=== PATIENT | male | born 1980 | race Two or more races ===

== ENCOUNTER 2020-08-05 14:09 | Outpatient (REF) | payer MEDICARE, MEDICAID, SELFPAY ==
--- NOTE | 2020-08-05 14:32 | XR_ITS ---
EXAMINATION: XR MANDIBLE CLINICAL INFORMATION: Pain. COMPARISON: None TECHNIQUE: 4 views of the mandible were obtained. FINDINGS: There are no fractures or dislocations. No bone, joint or soft tissue abnormality is demonstrated. XR/XR mandible <4V IMPRESSION: Unremarkable mandible exam.
--- NOTE | 2020-08-05 14:32 | XR_ITS ---
EXAMINATION: XR CHEST CLINICAL INFORMATION: Weight loss COMPARISON: Chest radiographs 10/25/2012 TECHNIQUE: 2 views of the chest were obtained. FINDINGS: The heart is normal in size. The vascularity is normal. There is no visible mass or airspace elevation or effusion. The hilar and mediastinal contours are unremarkable. No acute bony abnormality. XR/XR chest 2V IMPRESSION: Unremarkable examination.
[2020-08-05 14:48] LABS: MANUAL DIFF FLAG NO
[2020-08-05 15:01] LABS: Basophils Absolute Auto 0.1 X10*3/uL (0.0-0.2); Basophils Percent Auto 0.7 % (0-2); Eosinophils Absolute Auto 0.3 X10*3/uL (0.0-0.4); Eosinophils Percent Auto 3.7 % (0-4); Hematocrit 48.9 % (42-52); Hemoglobin 17.2 g/dl (14.0-18.0); Imm Gran Abs Auto 0.02 X10*3/uL (0.00-0.03); Imm Gran Pct Auto 0.2 % (0.0-0.4); Lymphocytes Absolute Auto 2.5 X10*3/uL (1.2-4.9); Lymphocytes Percent Auto 30.2 % (20-40); Mean Corpuscular HGB Conc 35.2 g/dl (31.0-36.0); Mean Corpuscular Hemoglobin 29.5 pg (27.0-33.0); Mean Corpuscular Volume 83.9 fL (80-98); Mean Platelet Volume 12.1 fL (9.4-12.4); Monocytes Absolute Auto 0.5 X10*3/uL (0.1-1.2); Monocytes Percent Auto 6.5 % (2-11); Neutrophils Absolute Auto 4.9 X10*3/uL (2.0-8.3); Neutrophils Percent Auto 58.7 % (45-73); Platelet Count 213 X10*3/uL (160-400); Red Blood Count 5.83 X10*6/uL (4.60-5.80); Red Cell Distribution Width 11.6 % (11.0-16.0); White Blood Count 8.3 X10*3/uL (4.8-10.8)
[2020-08-05 15:22] LABS: Alanine Aminotransferase 43 U/L (0-40); Albumin Level 4.4 g/dL (3.5-5.0); Alkaline Phosphatase 201 U/L (39-117); Anion Gap 14 (12-20); Aspartate Amino Transferase 22 U/L (5-37); Bilirubin Total 0.5 mg/dL (0.0-1.0); Blood Urea Nitrogen 7 mg/dL (9-16); Calcium 9.6 mg/dL (8.4-10.2); Carbon Dioxide 27 mmol/L (22-29); Chloride 94 mmol/L (96-108); Estimated Glomerular Filt Rate > 60; Glucose Random 545 mg/dL (60-115); Potassium 4.5 mmol/l (3.3-5.1); Sodium 130 mmol/L (135-145); Total Protein 7.5 g/dL (6.5-8.0)
[2020-08-05 15:40] LABS: Free T4 (Free Thyroxine) 1.09 ng/dL (0.71-1.85); Thyroid Stimulating Hormone 1.56 uIU/mL (0.32-4.0)
== END 2020-08-05 14:10 | disposition home or self-care (01) ==
LOC: HO.LAB 14:09
PROVIDERS: PCP Internal Medicine; Visit Provider Internal Medicine
DX: K21.9 Gastro-esophageal reflux disease without esophagitis (principal); R63.4 Abnormal weight loss; M25.28 Flail joint, other site
CPT/HCPCS: 36415; 70100; 71046; 80053; 84439; 84443; 85025

== ENCOUNTER 2021-04-26 12:19 | Outpatient (REF) | payer MEDICARE, MEDICAID, SELFPAY ==
[2021-04-26 13:56] LABS: MANUAL DIFF FLAG NO
[2021-04-26 14:01] LABS: Basophils Absolute Auto 0.1 X10*3/uL (0.0-0.2); Basophils Percent Auto 0.7 % (0-2); Eosinophils Absolute Auto 0.5 X10*3/uL (0.0-0.4); Eosinophils Percent Auto 5.5 % (0-4); Hematocrit 48.9 % (42-52); Hemoglobin 16.9 g/dl (14.0-18.0); Imm Gran Abs Auto 0.02 X10*3/uL (0.00-0.03); Imm Gran Pct Auto 0.2 % (0.0-0.4); Lymphocytes Absolute Auto 3.2 X10*3/uL (1.2-4.9); Lymphocytes Percent Auto 32.4 % (20-40); Mean Corpuscular HGB Conc 34.6 g/dl (31.0-36.0); Mean Corpuscular Hemoglobin 29.9 pg (27.0-33.0); Mean Corpuscular Volume 86.4 fL (80-98); Mean Platelet Volume 11.7 fL (9.4-12.4); Monocytes Absolute Auto 0.6 X10*3/uL (0.1-1.2); Monocytes Percent Auto 6.3 % (2-11); Neutrophils Absolute Auto 5.4 X10*3/uL (2.0-8.3); Neutrophils Percent Auto 54.9 % (45-73); Platelet Count 196 X10*3/uL (160-400); Red Blood Count 5.66 X10*6/uL (4.60-5.80); Red Cell Distribution Width 12.5 % (11.0-16.0); White Blood Count 9.8 X10*3/uL (4.8-10.8)
[2021-04-26 14:15] LABS: Estimated Average Glucose 140 mg/dL; Hemoglobin A1c % 6.5 %
[2021-04-26 14:25] LABS: Creatinine Urine 122.13 mg/dL; Microalbum/Creatinine Ratio Ur 4.9 ug/mg cr
[2021-04-26 14:29] LABS: Alanine Aminotransferase 95 U/L (0-40); Albumin Level 4.3 g/dL (3.5-5.0); Alkaline Phosphatase 113 U/L (39-117); Anion Gap 13 (12-20); Aspartate Amino Transferase 55 U/L (5-37); Bilirubin Total 0.7 mg/dL (0.0-1.0); Blood Urea Nitrogen 6 mg/dL (9-16); Calcium 9.1 mg/dL (8.4-10.2); Carbon Dioxide 25 mmol/L (22-29); Chloride 105 mmol/L (96-108); Estimated Glomerular Filt Rate > 60; Glucose Fasting 123 mg/dL (60-99); Potassium 4.3 mmol/L (3.3-5.1); Sodium 139 mmol/L (135-145); Total Protein 7.5 g/dL (6.5-8.0)
[2021-04-26 14:38] LABS: Thyroid Stimulating Hormone 2.04 uIU/mL (0.32-4.0)
== END 2021-04-26 12:20 | disposition home or self-care (01) ==
LOC: HO.10HDL 12:19
PROVIDERS: Visit Provider Internal Medicine
DX: E11.9 Type 2 diabetes mellitus without complications (principal); K21.9 Gastro-esophageal reflux disease without esophagitis; R63.5 Abnormal weight gain
CPT/HCPCS: 36415; 80053; 82043; 83036; 84443; 85025

== ENCOUNTER 2024-10-22 11:06 | Outpatient (REF) | payer MEDICARE, SELFPAY ==
[2024-10-22 12:39] LABS: Estimated Average Glucose 111 mg/dL; Hemoglobin A1C 169.0809 umol/L; Hemoglobin A1c % 5.5 % (<6.0)
[2024-10-22 12:54] LABS: Alanine Aminotransferase 31 U/L (0-40); Albumin Level 4.2 g/dL (3.5-5.0); Alkaline Phosphatase 111 U/L (39-117); Anion Gap 10 (12-20); Aspartate Amino Transferase 26 U/L (5-37); Bilirubin Total 0.5 mg/dL (0.0-1.0); Blood Urea Nitrogen 7 mg/dL (9-16); Calcium 9.2 mg/dL (8.4-10.2); Carbon Dioxide 28 mmol/L (22-29); Chloride 107 mmol/L (96-108); Cholesterol 206 mg/dL (<200); Estimated Glomerular Filt Rate > 60; Glucose Random 87 mg/dL (60-115); HDL Cholesterol 44 mg/dL (>40); LDL Cholesterol Calculated 114 mg/dL (<100); Potassium 3.9 mmol/L (3.3-5.1); Sodium 141 mmol/L (135-145); Total Protein 7.2 g/dL (6.5-8.0); Triglycerides 244 mg/dL (<150)
[2024-10-22 13:53] LABS: Microalbumin Urine < 5.0 mg/L
== END 2024-10-22 11:07 | disposition home or self-care (01) ==
LOC: HO.LAB 11:06
PROVIDERS: PCP Internal Medicine; Visit Provider Internal Medicine
DX: E11.9 Type 2 diabetes mellitus without complications (principal)
CPT/HCPCS: 36415; 80053; 80061; 82043; 82570; 83036

== ENCOUNTER 2024-12-17 10:53 | Outpatient (AMB) | payer MEDICARE, SELFPAY ==
--- NOTE | 2024-12-17 10:55 | A.OFFPC_ITS ---
Vital Signs 12/17/24 10:57 12/17/24 11:20 Height 5 ft 9 in Weight 88.451 kg BMI 28.8 BP 138/98 H 120/78 Respiration 16 Pulse 75 Pulse Source Pulse Oximeter Temp 97.7 F Temp Source Temporal Artery Scan Pulse Oximetry (%) 96 Oxygen Delivery Method Room Air Intake Visit Reasons: Routine Marketing Support Manager Required: No Accompanied by: Self / Same As Patient Allergies No Known Allergies [No Known Allergies*] Allergy (Unverified 12/17/24 10:55) Medication List - Last Reconciled 12/17/24 by DANIEL Anderson benztropine 1 mg PO BID fluoxetine 20 mg PO DAILY risperidone 2 mg PO BID HPI HPI Comments History of Present Illness Details 44-year-old male with history of schizop hrenia presents to the office today for evaluation and to establish care. He has been following with both a psychiatrist and therapist at [facility] he reports good control over his symptoms. He does have a history of paranoia with most recent hospitalization in 2019 at [facility]. Since then, he has been stable on his medications. He is currently taking risperidone 2 mg twice daily and fluoxetine 20 mg daily. He is also on benztropine but denies any history of symptoms consistent with EPS or TD. Units have a remote history of hemoglobin A1c 6.5%, possibly related to psychiatric medications. Now controlled at 5.5%. He does state that he exercises on a daily basis but is not overly strict with his diet. He denies any SI/HI. PHQ-9 and brina 7 both negative. ROS: General: No fevers, malaise, unintentional weight loss HEENT: No blurred vision, diplopia. No sore throat, nasal congestion, rhinorrhea, sinus pain, ear pain Cardiovascular: No chest pain, palpitations, or leg edema Respiratory: No shortness of breath, wheezing, cough GI: No abdominal pain, nausea, vomiting, diarrhea, constipation, melena, hematochezia : No dysuria, hematuria, increased urinary frequency, decreased urinary output MSK: No myalgia, back pain Neuro: No headaches, weakness, paresthesias Skin: No rashes or lesions EXAM: Constitutional - Awake and Alert, No apparent distress Eyes - PERRLA, EOMI Cardiovascular - S1S2, RRR, No edema Respiratory - Normal lung expansion, Normal respiratory effort, No respiratory distress, CTA bilaterally Extremities - no calf tenderness bilaterally, no swelling Skin - Warm/Dry Neurological - Alert & oriented x3 Psychological - flat affect, appropriate mood Health Maintenance: Screening colonoscopy-no history of colon cancer in his family. Will initiate colon cancer screening in 1 year Advised to quit smoking [facility] Medical History (Updated 12/17/24 @ 11:11 by DANIEL Anderson) Schizophrenia Surgical History (Updated 12/17/24 @ 11:11 by DANIEL Anderson) No pertinent past surgical history Family History Maternal Grandmother No problems noted. Mother No problems noted. Social History Patient Tobacco Use Status: Current everyday Tobacco user Tobacco use type: Cigarette Cigarettes Per Day: 2 Substance Use Type: Marijuana Physical exam (Primary Care) Vital Signs: Last Vital Signs Temp 97.7 F 12/17/24 10:57 Pulse 75 12/17/24 10:57 Resp 16 12/17/24 10:57 BP 138/98 H 12/17/24 10:57 Pulse Ox 96 12/17/24 10:57 Oxygen Delivery Method Room Air 12/17/24 10:57 BMI result Body Mass Index 28.8 Coding Level of Care Code New Pt Level 3 (21977) Diagnoses Schizophrenia F20.9 Diabetes mellitus E11.9 Assessment & Plan Assessment & Plan (1) Schizophrenia: Comment: last hospitalization 1999 [facility] [place] Code(s): F20.9 - Schizophrenia, unspecified Category: Medical Plan: Stable. Continue following with psychiatry and counseling at [facility]. Continue on current medications, refills sent. (2) Diabetes mellitus: Code(s): E11.9 - Type 2 diabetes mellitus without complications Category: Medical Plan: Suspect related to psychiatric medication, now controlled at 5.5%. Continue regular exercise and work to improve diabetic diet. Plan Follow up for annual physical exam. Last labs reviewed to normal renal function electrolyte levels. Acceptable cholesterol levels and A1c. Continue medications as prescribed Medications: New benztropine 1 mg PO BID 180 tabs 1RF fluoxetine 20 mg PO DAILY 90 caps 1RF risperidone 2 mg PO BID 180 tabs 1RF
[2024-12-17 10:57] VITALS: BP 138/98; PULSE 75; RESP 16; TEMP 36.5; O2SAT 96; BMI 28.8
[2024-12-17 11:20] VITALS: BP 120/78
== END 2024-12-17 11:33 | disposition home or self-care (01) ==
LOC: HO.HMCHD 10:53
PROVIDERS: PCP Internal Medicine; Visit Provider Physician Assistant
DX: F20.9 Schizophrenia, unspecified (principal); E11.9 Type 2 diabetes mellitus without complications

== ENCOUNTER → 2024-12-17 10:53 | Outpatient (BNVA) | payer MEDICARE, SELFPAY | PROVIDERS: PCP Internal Medicine; Visit Provider Physician Assistant | DX: F20.9 Schizophrenia, unspecified (principal); E11.9 Type 2 diabetes mellitus without complications; F17.210 Nicotine dependence, cigarettes, uncomplicated | CPT/HCPCS: 99202 ==

== ENCOUNTER 2025-04-23 13:01 | Outpatient (AMB) | payer MEDICARE, SELFPAY ==
--- NOTE | 2025-04-23 12:43 | MHC.PC.OV ---
Vital Signs 04/23/25 13:08 Height 5 ft 9 in Weight 209 lb BMI 30.9 BP 110/68 Blood Pressure Location Lt brachial Position Sitting Respiration 16 Pulse 63 Pulse Source Pulse Oximeter Temp 97.8 F Temp Source Temporal Artery Scan Pulse Oximetry (%) 97 Oxygen Delivery Method Room Air Intake Visit Reasons: Annual PE Pin Inserter Required: No Accompanied by: Self / Same As Patient Allergies No Known Allergies (No Known Allergies*) Allergy (Verified 04/23/25 12:44) Medication List - Last Reconciled 04/23/25 by Eduardo Reyes MD benztropine 1 mg PO BID fluoxetine 40 mg PO DAILY glipizide 10 mg PO BID metformin 500 mg PO BID risperidone 2 mg PO BID Tobacco use date assessed: 04/23/25 Dental Screening Dental Screen Date: 04/23/25 Did you have a dental visit in the last 12 months?: No Did you have a dental problem in the last 6 months where you did not have access to dental care?: No Was dental information given to patient?: Patient has dentist HPI HPI Comments History of Present Illness Details The patient is a 44-year-old male presenting for his annual physical examination. During the visit, the patient reported no acute complaints or specific health concerns and stated that his health has been so far, so good. He denied experiencing any mood disturbances, such as feeling down, depressed, or anxious, and indicated he was taking it day by day. The patient has a medical history significant for schizophrenia and type 2 diabetes mellitus, which are being managed with medications. He has been taking benztropine 1 mg twice daily, fluoxetine 40 mg once daily, and risperidone 2 mg twice daily for schizophrenia. For diabetes management, he takes glipizide 10 mg twice daily and metformin 500 mg twice daily. He has regular follow-ups with his psychiatrist two to three times a month and also sees a therapist with the same frequency. Socially, the patient is currently on disability due to an accident and is not employed. 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 He lives in stable housing and has access to his medications without financial worries. The patient admits to occasional smoking, about once a month, and consumes alcohol similarly with two to three drinks per occasion. He enjoys walking in the park for leisure. The patient's last colonoscopy has not yet been conducted, as screening is recommended to begin at age 45. He has not yet received this year?s influenza vaccine. Overall, the patient appears to manage his chronic conditions well and is compliant with his care plans, as indicated by his regular medical and psychiatric follow-ups and medication adherence. Medical History: - Schizophrenia - Type 2 Diabetes Mellitus Medications: - Benztropine 1 mg, twice daily, for schizophrenia - Fluoxetine 40 mg, once daily, for schizophrenia - Risperidone 2 mg, twice daily, for schizophrenia - Glipizide 10 mg, twice daily, for diabetes - Metformin 500 mg, twice daily, for diabetes Social History: - Currently disabled due to an accident; not employed - Former regional sales executive at [employer] - Stable housing - Smokes occasionally, approximately once a month - Consumes alcohol about once a month, two to three drinks per occasion - Regular physical activity includes walking in the park - No financial barriers to medication access [facility] Medical History (Updated 04/23/25 @ 13:21 by Eduardo Reyes MD) Annual physical exam Schizophrenia Surgical History No pertinent past surgical history Family History Maternal Grandmother No problems noted. Mother No problems noted. Social History (Updated 12/17/24 @ 11:14 by DANIEL Anderson) Housing: House Patient Tobacco Use Status: Current everyday Tobacco user Tobacco use type: Cigarette Cigarettes Per Day: 2 Years Smoked: 2 years Packs per year/per ci.00 e-Cigarette/Vaping Use: Never Used Substance Use Type: Marijuana service: No Current occupational status: disabled Questionnaire PHQ-9 Over the last 2 weeks, how often have you been bothered by any of the following problems? 1. Little interest or pleasure in doing things: not at all 2. Feeling down, depressed, or hopeless: not at all 3. Trouble falling or staying asleep, or sleeping too much: not at all 4. Feeling tired or having little energy: not at all 5. Poor appetite or overeating: not at all 6. Feeling bad about yourself - or that you are a failure or have let yourself or your family down: not at all 7. Trouble concentrating on things, such as reading the newspaper or watching television: not at all 8. Moving or speaking so slowly that other people could have noticed. Or the opposite - being so fidgety or restless that you have been moving around a lot more than usual: not at all 9. Thoughts that you would be better off or of hurting yourself in some way: not at all Total score: 0 Depression Screening Interpretation: Negative Depression Screening Done: Yes 44145 - PHQ-9 Billing: Yes Source: Developed by Drs. Denver Salgado, Radha Choudhary, Rodrigo Moctezuma and colleagues, with an educational satya from [employer]. Thrive Questionnaire Date Thrive assessed: 04/23/25 I am a: Patient What is your living situation today?: I have a steady place to live Within the past 12 months, did the food you bought not last and you didn't have the money to get more?: Never true Within the past 12 months, did you worry whether your food would run out before you got money to buy more?: Never true Do you have trouble paying for medicines?: No Do you have trouble getting transportation to medical appointments?: No Do you have trouble paying your heating and electricity bill?: No Do you have trouble taking care of your child, family member or friend?: No Do you have trouble with day-to-day activities such as bathing, preparing meals, shopping, managing finances, etc.?: No Are you currently unemployed and looking for a job?: No Are you interested in more education?: No THRIVE Score: 0 AUDIT C Alcohol Use Questionnaire (AUDIT-C) 1. How often do you have a drink containing alcohol?: Monthly or less 2. How many drinks containing alcohol do you have on a typical day when you are drinking?: 3 or 4 3. How often do you have six or more drinks on one occasion?: Never Total Score: 2 VERA-7 AMB Questionnaire VERA-7 Date VERA - 7 assessed: 04/23/25 Feeling nervous, anxious, or on edge: 0 = Not at all Not being able to stop or control worryin = Not at all Worrying too much about different things: 0 = Not at all Trouble relaxin = Not at all Being so restless that it is hard to sit still: 0 = Not at all Becoming easily annoyed or irritable: 0 = Not at all Feeling afraid as if something awful might happen: 0 = Not at all Total VERA-7 score (0-4 normal; 5-9 mild; 10-14 moderate; 15-21 severe): 0 Source: Developed by Drs. Denver Salgado, Radha Choudhary, Rodrigo Moctezuma and colleagues, with an educational satya from [employer]. VERA-7 Assessment Billing VERA-7 Assessment Tool: VERA-7 Assessment 19053 Review of Systems Const Details: - Psychiatric: Denies mood disturbances, feeling down, depressed, or anxious - Respiratory: Denies shortness of breath - Cardiovascular: Denies chest pain - Gastrointestinal: Denies nausea, vomiting, changes in bowel habits - Neurological: Denies headaches, changes in vision, hearing loss - Musculoskeletal: Denies joint pains All systems reviewed & are unremarkable except as reviewed in HPI and above Physical exam (Primary Care) Vital Signs: Last Vital Signs Temp 97.8 F 04/23/25 13:08 Pulse 63 04/23/25 13:08 Resp 16 04/23/25 13:08 BP 110/68 04/23/25 13:08 Pulse Ox 97 04/23/25 13:08 Oxygen Delivery Method Room Air 04/23/25 13:08 BMI result Body Mass Index 30.9 Tobacco/Smoking Status: Tobacco use Status Tobacco use date assessed 04/23/25 04/23/25 12:44 Patient Tobacco Use Status Current everyday Tobacco 04/23/25 12:44 Tobacco use type Cigarette 04/23/25 12:44 e-Cigarette/Vaping Use Never Used 04/23/25 13:10 PHQ-9: PHQ-9 Score PHQ-9: Total score 0 04/23/25 13:15 Depression Screening Interpretation: Negative Thrive Assessment: Date of Thrive Assessment Date Thrive assessed 04/23/25 04/23/25 13:15 Const Other: General: +Alert and oriented, Well nourished, No acute distress. Eye: Pupils are equal, round and reactive to light, Intact accommodation, Extraocular movements are intact, Normal conjunctiva, Vision unchanged. HENT: Normocephalic, Atraumatic, Tympanic membranes are clear, Normal hearing, Oral mucosa is moist, No pharyngeal erythema, Ear canals patent. Respiratory: Lungs CTA bilaterally, No wheeze, Respirations are non-labored. Cardiovascular: Regular rate, Regular rhythm, S1 auscultated, S2 auscultated, No murmur, Good pulses equal in all extremities, Normal peripheral perfusion, No edema. Gastrointestinal: Soft, Non-tender, Non-distended, Normal bowel sounds, No organomegaly. Musculoskeletal: Normal range of motion, Normal strength, No tenderness, No swelling, No deformity, Normal gait. Integumentary: Warm, Dry, [place], Intact. Neurologic: Alert, Oriented, Normal sensory, Normal motor function, No focal defects, Cranial Nerves II-XII are grossly intact, Normal deep tendon reflexes. Psychiatric: Cooperative, Appropriate mood & affect, Normal judgment. Coding Level of Care Code Est Pt Prev Care 40-64y(00427) Diagnoses Annual physical exam Z00.00 Type 2 diabetes mellitus without complication, without long-term current use of insulin E11.9 Diabetes mellitus complication status: without complication Diabetes mellitus group home insulin use: without group home use Diabetes mellitus type: type 2 Schizophrenia, unspecified type F20.9 Schizophrenia type: unspecified Additional Codes VERA-7 Assessment Billing - VERA-7 Assessment Tool: VERA-7 Assessment 47789 ([id number]) PHQ-9 - 40820 - PHQ-9 Billing: Yes ([id number]) Assessment & Plan Assessment & Plan (1) Annual physical exam: Comment: - Scheduled for a colonoscopy screening upon reaching 45 years of age. - Reminder to obtain the influenza vaccination at a pharmacy. - Baseline labs obtained Code(s): Z00.00 - Encounter for general adult medical examination without abnormal findings Category: Medical (2) Diabetes mellitus: Comment: - Continued oral medication regimen with glipizide and metformin. - Ongoing monitoring of blood glucose levels and regular check-ups to ensure control. - A1c sent Code(s): E11.9 - Type 2 diabetes mellitus without complications Category: Medical Qualifiers: Diabetes mellitus complication status: without complication Diabetes mellitus joint terminal attack controller insulin use: without group home use Diabetes mellitus type: type 2 Qualified Code(s): E11.9 - Type 2 diabetes mellitus without complications (3) Schizophrenia: Comment: - Continued management with current medications: benztropine, fluoxetine, and risperidone. - Regular psychiatric & therapist follow-up is maintained, seen two to three times a month. - Last hospitalization [place] [facility] [place] Code(s): F20.9 - Schizophrenia, unspecified Category: Medical Qualifiers: Schizophrenia type: unspecified Qualified Code(s): F20.9 - Schizophrenia, unspecified Plan: Health Maintennace: - Colonoscopy screening recommended at age 45 - Influenza vaccination advised, to be obtained at a pharmacy Patient was informed and verbally consented to the use of an ambient scribe for clinic note documentation during this visit. Plan During the visit, we discussed the patient's ongoing management for schizophrenia and type 2 diabetes mellitus. I emphasized the importance of adherence to the current medication regimen for both conditions and encouraged the patient to continue regular psychiatric care. The patient was informed about the recommended screening for colorectal cancer beginning at age 45 and the importance of obtaining an influenza vaccination. We reviewed the lab work to be completed today, including blood counts, electrolytes, glucose levels, and other health indicators. The patient agreed to the discussed plan and acknowledged understanding. Orders: Orders Comprehensive Met. Panel Today Z00.00 - Encounter for general adult medical examination without abnormal findings Hemoglobin A1c Today Z00.00 - Encounter for general adult medical examination without abnormal findings Hepatitis A,B,C Profile Today Z00.00 - Encounter for general adult medical examination without abnormal findings HIV Ab/Ag Today Z00.00 - Encounter for general adult medical examination without abnormal findings Lipid Panel Today Z00.00 - Encounter for general adult medical examination without abnormal findings Vitamin D 25-OH Total Today Z00.00 - Encounter for general adult medical examination without abnormal findings Complete Blood Count Auto Diff Today Z00.00 - Encounter for general adult medical examination without abnormal findings Syphilis Screen Today Z00.00 - Encounter for general adult medical examination without abnormal findings TSH reflex Free T4 Today Z00.00 - Encounter for general adult medical examination without abnormal findings Patient Instructions: - Continue taking all current medications as prescribed. - Follow up with psychiatric care and therapy sessions regularly. - Obtain an influenza vaccination at a local pharmacy. - Schedule a colonoscopy screening after turning 45. - Return for follow-up visits as needed or every six months. - Maintain current lifestyle activities, such as walking.
[2025-04-23 13:08] VITALS: BP 110/68; PULSE 63; RESP 16; TEMP 36.6; O2SAT 97; BMI 30.9
== END 2025-04-23 13:21 | disposition home or self-care (01) ==
LOC: HO.HMCHD 13:02
PROVIDERS: PCP Student in an Organized Health Care Education/Training Program; Visit Provider Student in an Organized Health Care Education/Training Program
DX: Z00.00 Encounter for general adult medical examination without abnormal findings (principal); E11.9 Type 2 diabetes mellitus without complications; F20.9 Schizophrenia, unspecified

== ENCOUNTER 2025-04-23 13:01 | Outpatient (REF) | payer MEDICARE, SELFPAY ==
[2025-04-23 13:43] LABS: MANUAL DIFF FLAG NO
[2025-04-23 14:24] LABS: Hematocrit 46.7 % (42.0-52.0); Hemoglobin 16.4 g/dl (14.0-18.0); Imm Gran Abs Auto 0.05 X10*3/uL (0.00-0.03); Imm Gran Pct Auto 0.6 % (0.0-0.4); Lymphocytes Absolute Auto 2.5 X10*3/uL (1.2-4.9); Mean Corpuscular HGB Conc 35.1 g/dl (31.0-36.0); Mean Corpuscular Hemoglobin 29.8 pg (27.0-33.0); Mean Corpuscular Volume 84.8 fL (80.0-98.0); NRBC Abs Auto 0.000 X10*3/uL (0.0-0.012); NRBC Pct Auto 0.0 /100WBC (0.0-0.2); Platelet Count 153 X10*3/uL (160-400); Red Blood Count 5.51 X10*6/uL (4.60-5.80); White Blood Count 8.4 X10*3/uL (4.8-10.8)
[2025-04-23 15:12] LABS: Alanine Aminotransferase 44 U/L (0-40); Albumin Level 4.2 g/dL (3.5-5.0); Alkaline Phosphatase 98 U/L (39-117); Anion Gap 12 (12-20); Aspartate Amino Transferase 50 U/L (5-37); Blood Urea Nitrogen 9 mg/dL (9-16); Calcium 9.2 mg/dL (8.4-10.2); Carbon Dioxide 26 mmol/L (22-29); Chloride 105 mmol/L (96-108); Cholesterol 211 mg/dL (<200); Estimated Glomerular Filt Rate > 60; HDL Cholesterol 35 mg/dL (>40); Potassium 4.0 mmol/L (3.3-5.1); Sodium 139 mmol/L (135-145); Total Protein 7.0 g/dL (6.5-8.0); Triglycerides 313 mg/dL (<150)
[2025-04-24 08:31] LABS: Syphilis Screen Nonreactive (Nonreactive)
[2025-04-24 08:40] LABS: HBS Num1 0.05 mIU/mL (0-7.99); HBc Num1 0.06 S/CO (0.00-0.79); HBsAGNum1 0.37 S/CO (0.00-0.99); HIV Num 1 0.08 S/CO (0.00-0.99); Hepatitis A Antibody IgM 0.19 Index (0-0.79); Hepatitis B Surface Antigen Negative (Negative); ~HepC Num1 0.09 S/CO (0.00-0.79); ~Hepatitis A Antibody IgM Nonreactive (Nonreactive); ~Hepatitis B Surface Antibody NONREACTIVE (Nonreactive); ~Hepatitis C Antibody Nonreactive (Nonreactive)
== END 2025-04-23 13:02 | disposition home or self-care (01) ==
LOC: HO.LAB 13:01
PROVIDERS: PCP Internal Medicine; Visit Provider Student in an Organized Health Care Education/Training Program
DX: Z00.00 Encounter for general adult medical examination without abnormal findings (principal); F20.9 Schizophrenia, unspecified; E11.9 Type 2 diabetes mellitus without complications; Z79.899 Other long term (current) drug therapy
CPT/HCPCS: 36415; 80053; 80061; 82306; 83036; 84443; 85025; 86704; 86706; 86709; 86780; 86803; 87340; 87389; 96127; 99396